=== PATIENT | male | born 1990 | race Two or more races ===

== ENCOUNTER 2017-09-30 14:42 | Emergency (ER) | payer SELFPAY ==
[~2017-09-30] VITALS: Ht 175.3 cm; Wt 104.3 kg
[2017-09-30] MEDS ORDERED: LORazepam 0.5 MG TAB PO ONE (17:30)
[2017-09-30 17:34] VITALS: BP 148/80
== END 2017-09-30 17:23 | disposition home or self-care (01) ==
LOC: ER 14:44
DX: F41.9 Anxiety disorder, unspecified (principal); F43.10 Post-traumatic stress disorder, unspecified